=== PATIENT | male | born 1985 ===

== ENCOUNTER 2017-10-29 16:16 | Emergency (ER) | payer OTHER ==
[~2017-10-29] VITALS: Ht 185.4 cm; Wt 84.0 kg
[2017-10-29 16:28] VITALS: BP 138/62; PULSE 67; RESP 16; TEMP 98.4; O2SAT 97
[2017-10-29] MEDS ORDERED: PANTOPRAZOLE SOD 40 MG DELAYED RELEASE TAB PO ONE (17:00)
--- NOTE | 2017-10-29 17:06 | PD ---
HPI Chief Complaint: GI Complaint Time Seen by Provider: 16:49 Travel History International Travel<30 days: No Contact w/Intl Traveler<30days: No Traveled to known affect area: No History of Present Illness HPI 32-year-old male complains of blood in the stool. Patient states that he has intermittent blood in stool for the past week. Patient states that he has spell to 3 bowel movement a day and noted some small amount of blood in the stool. Patient states that sometime blood is red and sometimes dark in color. Patient states that he has intermittent epigastric abdominal cramping. Patient denies any nausea vomiting diarrhea. Patient denies any fever chills. Patient denies any back pain. Patient has history of blood in the stool about 6 months ago. Patient was seen by GI specialist and was treated for hemorrhoids. Patient states that he did not have endoscopy performed. Patient states that he was taking ibuprofen last week for back pain. Patient states that he drinks alcohol occasionally. Patient states that he has intermittent mild epigastric discomfort and bloating about 2 hours prior to arrival. Patient denies any abdominal pain for the past week. Patient denies any of recent weight loss. [facility] Past Medical History Medical History: Denies Significant Hx Diminished Hearing: No Past Surgical History Surgical History: No Previous Surgery Social History Alcohol Use: Yes (1-2 beers every other day) Tobacco Use: No Allergies-Medications (Allergen,Severity, Reaction): Coded Allergies: No Known Allergies (Unverified , 10/29/17) Reported Meds & Prescriptions Reported Meds & Active Scripts Active No Active Prescriptions or Reported Medications Review of Systems General / Constitutional: No: Fever Eyes: No: Visual changes HENT: No: Headaches Cardiovascular: No: Chest Pain or Discomfort Respiratory: No: Shortness of Breath Gastrointestinal: Positive: Abdominal Pain, Hematochezia Genitourinary: No: Dysuria Musculoskeletal: No: Pain Skin: No Rash Neurologic: No: Weakness Psychiatric: No: Depression Endocrine: No: Polydipsia Hematologic/Lymphatic: No: Easy Bruising Physical Exam Narrative GENERAL: Well-nourished, well-developed patient. SKIN: Focused skin assessment warm/dry. HEAD: Normocephalic. EYES: No scleral icterus. No injection or drainage. NECK: Supple, trachea midline. No JVD or lymphadenopathy. CARDIOVASCULAR: Regular rate and rhythm without murmurs, gallops, or rubs. RESPIRATORY: Breath sounds equal bilaterally. No accessory muscle use. GASTROINTESTINAL: Abdomen soft, nondistended. Patient has mild tenderness in palpation epigastric area. No rebound tenderness. No mass. Rectal exam shows small amount of external hemorrhoid. No active bleeding. No thrombosis. Hemoccult positive. MUSCULOSKELETAL: No cyanosis, or edema. BACK: Nontender without obvious deformity. No CVA tenderness. Neurologic exam normal. Data Data Last Documented VS Vital Signs Date Time Temp Pulse Resp B/P (MAP) Pulse Ox O2 Delivery O2 Flow Rate FiO2 10/29/17 16:28 98.4 67 16 138/62 (87) 97 Orders Orders Complete Blood Count With Diff (10/29/17 17:00) Comprehensive Metabolic Panel (10/29/17 17:00) Prothrombin Time / Inr (Pt) (10/29/17 17:00) Act Partial Throm Time (Ptt) (10/29/17 17:00) Iv Access Insert/Monitor (10/29/17 17:00) Pantoprazole (Protonix) (10/29/17 17:00) Labs Laboratory Tests Test 10/29/17 17:12 White Blood Count 6.0 TH/MM3 Red Blood Count 4.56 MIL/MM3 Hemoglobin 14.2 GM/DL Hematocrit 42.9 % Mean Corpuscular Volume 94.1 FL Mean Corpuscular Hemoglobin 31.2 PG Mean Corpuscular Hemoglobin Concent 33.2 % Red Cell Distribution Width 11.4 % Platelet Count 214 TH/MM3 Mean Platelet Volume 8.5 FL Neutrophils (%) (Auto) 53.0 % Lymphocytes (%) (Auto) 36.7 % Monocytes (%) (Auto) 6.5 % Eosinophils (%) (Auto) 2.9 % Basophils (%) (Auto) 0.9 % Neutrophils # (Auto) 3.1 TH/MM3 Lymphocytes # (Auto) 2.2 TH/MM3 Monocytes # (Auto) 0.4 TH/MM3 Eosinophils # (Auto) 0.2 TH/MM3 Basophils # (Auto) 0.1 TH/MM3 CBC Comment DIFF FINAL Differential Comment Prothrombin Time 10.4 SEC Prothromb Time International Ratio 1.0 RATIO Activated Partial Thromboplast Time 25.7 SEC Blood Urea Nitrogen 12 MG/DL Creatinine 1.00 MG/DL Random Glucose 89 MG/DL Total Protein 7.6 GM/DL Albumin 4.0 GM/DL Calcium Level 8.4 MG/DL Alkaline Phosphatase 71 U/L Aspartate Amino Transf (AST/SGOT) 15 U/L Alanine Aminotransferase (ALT/SGPT) 23 U/L Total Bilirubin 0.4 MG/DL Sodium Level 139 MEQ/L Potassium Level 3.7 MEQ/L Chloride Level 107 MEQ/L Carbon Dioxide Level 26.3 MEQ/L Anion Gap 6 MEQ/L Estimat Glomerular Filtration Rate 87 ML/MIN MDM Medical Decision Making Medical Screen Exam Complete: Yes Emergency Medical Condition: Yes Interpretation(s) 1753 PM. CBC within normal limits. CMP within normal limits. Differential Diagnosis Differential diagnoses including upper versus lower GI bleed, diverticulosis, diverticulitis, AV malformation, hemorrhoidal bleed, gastric ulcer with bleeding. Narrative Course 32-year-old male with mild epigastric pain and blood in the stool. Patient was taking ibuprofen for back pain last week. History of GI bleed in the past. History of hemorrhoid. Protonix 40 mg p.o. given. Diagnosis Primary Impression: GI bleed Qualified Codes: K92.2 - Gastrointestinal hemorrhage, unspecified Additional Impression: External hemorrhoid Patient Instructions: General Instructions Additional Instructions: Protonix and Anusol as directed. Avoid ibuprofen and NSAIDs. Follow-up with chief data officer. Return if worse. Med/Other Pt SpecificInfo: Prescription(s) given Scripts Hydrocortisone Rectal (Anusol-Hc Rectal) 2.5% Cream 1 APPLIC RECTAL Q6H Y for ITCHING/INFLAMMATION, #30 GM 0 Refills Prov: Osmani Luke MD 10/29/17 Pantoprazole (Protonix) 20 Mg Tab 20 MG PO DAILY for Reflux, #30 TAB 0 Refills Prov: Osmani Luke MD 10/29/17 Disposition: 01 DISCHARGE HOME Condition: Stable Osmani Luke MD Oct 29, 2017 17:06
[2017-10-29 17:24] LABS: AUTOMATED NEUTROPHIL # 3.1 TH/MM3 (1.8-7.7); BASOPHIL # 0.1 TH/MM3 (0-0.2); BASOPHIL % 0.9 % (0.0-2.0); EOSINOPHIL # 0.2 TH/MM3 (0-0.4); EOSINOPHIL % 2.9 % (0.0-4.0); HEMATOCRIT 42.9 % (39.0-51.0); HEMOGLOBIN 14.2 GM/DL (13.0-17.0); LYMPH % 36.7 % (9.0-44.0); LYMPHOCYTE # 2.2 TH/MM3 (1.0-4.8); MEAN CELL VOLUME 94.1 FL (80.0-100.0); MEAN CORPUSCULAR HEMOGLOBIN 31.2 PG (27.0-34.0); MEAN CORPUSCULAR HGB CONC 33.2 % (32.0-36.0); MEAN PLATELET VOLUME 8.5 FL (7.0-11.0); MONO % 6.5 % (0.0-8.0); MONOCYTE # 0.4 TH/MM3 (0-0.9); PLATELET COUNT 214 TH/MM3 (150-450); RED BLOOD COUNT 4.56 MIL/MM3 (4.50-5.90); RED CELL DISTRIBUTION WIDTH 11.4 % (11.6-17.2)
[2017-10-29 17:31] LABS: CHLORIDE 107 MEQ/L (98-107); SODIUM (NA) 139 MEQ/L (136-145)
[2017-10-29 17:34] LABS: CALCIUM 8.4 MG/DL (8.5-10.1); GLUCOSE,RANDOM 89 MG/DL (74-106)
[2017-10-29 17:35] LABS: BICARBONATE 26.3 MEQ/L (21.0-32.0); BLOOD UREA NITROGEN 12 MG/DL (7-18)
[2017-10-29 17:38] LABS: ALT (GPT) 23 U/L (12-78); AST (GOT) 15 U/L (15-37); GLOMERULAR FILTRATION RATE 87 ML/MIN (>89)
[2017-10-29 17:40] LABS: TOTAL BILIRUBIN ADULT 0.4 MG/DL (0.2-1.0); TOTAL PROTEIN 7.6 GM/DL (6.4-8.2)
[2017-10-29 17:41] LABS: ALKALINE PHOSPHATASE 71 U/L (45-117)
[2017-10-29 17:45] LABS: PROTHROMBIN TIME - PATIENT 10.4 SEC (9.8-11.6)
[2017-10-29] MEDS ORDERED: HYDR2.5%T RECTAL (17:56)
[2017-10-29] MEDS ORDERED: PANT20 PO (17:56)
[2017-10-29 18:14] VITALS: BP 114/59; PULSE 60; RESP 16; O2SAT 97
== END 2017-10-29 18:15 | disposition home or self-care (01) ==
LOC: PHED 16:16
DX: K92.2 Gastrointestinal hemorrhage, unspecified (principal); K64.4 Residual hemorrhoidal skin tags
CPT/HCPCS: 80053; 85025; 85610; 85730; 99284